=== PATIENT | male | born 1940 | race Caucasian/White ===

== ENCOUNTER 2018-07-11 08:37 | Day surgery (SDC) | payer MEDICARE ==
[2018-07-08 13:43] LABS: Basophils # (auto) 0 uL; Basophils % (auto) 1.1 % (0.0-2.0); Eosinophils # (auto) 0.1 uL; Eosinophils % (auto) 1.3 % (0.0-7.0); Hematocrit 41.9 % (41.0-53.0); Hemoglobin 14.2 g/dL (13.5-17.5); Lymphocytes # (auto) 0.5 uL; Lymphocytes % (auto) 12.7 % (10.0-50.0); Mean Corpuscular Hemoglobin 31.8 pg (28.0-32.0); Mean Corpuscular Hgb Conc. 33.8 g/dL (32.0-36.0); Mean Corpuscular Volume 94.1 fL (80.0-100.0); Monocytes # (auto) 0.5 uL; Monocytes % (auto) 10.9 % (0.0-12.0); Neutrophils # (auto) 3.1 uL; Nucleated Red Blood Cells % 0.2 %; Platelet Count (auto) 224 10^3/uL (140-450); Red Blood Cells 4.45 10^6/uL (4.5-5.90); Red Cell Distribution Width 13.9 % (11.8-14.3); White Blood Cell 4.2 10^3/uL (4.4-10.8)
[2018-07-08 13:58] LABS: INR 1.06 (0.9-1.15); Partial Thromboplastin Time 36.7 sec (23.78-33.04); Prothrombin Time 11.3 sec (9.27-12.13)
[~2018-07-11] VITALS: Ht 167.6 cm; Wt 74.8 kg
[~2018-07-11 08:37] MED LIST: ATOR10TA52 PO; HYDR12.56 PO; LOSA25TA40 PO; TAMS0.4C36 PO; [UNRECOGNIZED DRUG - CODE] PO
[2018-07-11] MEDS: MIDAZOLAM HCL 5 MG/ML-1ML VIAL ONE ×2 (10:21→10:24)
[2018-07-11] MEDS: fentaNYL CITRATE 100 MCG/2 ML VL ONE ×2 (10:21→10:24)
[2018-07-11] MEDS ORDERED: SODIUM CHLORIDE LOCK 10 ML ONE (10:21)
[2018-07-11 11:21] VITALS: BP 108/65
== END 2018-07-11 11:33 | disposition home or self-care (01) ==
LOC: GI 08:37
PROVIDERS: ATTEND Internal Medicine Gastroenterology
DX: D12.4 Benign neoplasm of descending colon (principal); K64.8 Other hemorrhoids; K57.30 Diverticulosis of large intestine without perforation or abscess without bleeding; I48.91 Unspecified atrial fibrillation; Z88.6 Allergy status to analgesic agent; Z87.891 Personal history of nicotine dependence; Z98.890 Other specified postprocedural states; Z79.899 Other long term (current) drug therapy; Z96.652 Presence of left artificial knee joint; Z96.641 Presence of right artificial hip joint
CPT/HCPCS: 36415; 45380; 85025; 85610; 85730; J2250; J3010; J7030; 99153; G0500

== ENCOUNTER → 2018-07-18 | Outpatient (CLI) | payer MEDICARE | END | disposition home or self-care (01) | LOC: Rad HDHVI 12:43 | PROVIDERS: ATTEND Internal Medicine Cardiovascular Disease | DX: I34.0 Nonrheumatic mitral (valve) insufficiency (principal); I48.0 Paroxysmal atrial fibrillation; I49.5 Sick sinus syndrome | CPT/HCPCS: 93306 ==

== ENCOUNTER → 2018-07-23 | Outpatient (CLI) | payer MEDICARE ==
[~2018-07-23] VITALS: Ht 167.6 cm; Wt 74.8 kg
== END | disposition home or self-care (01) ==
LOC: Rad HDHVI 08:21
PROVIDERS: ATTEND Internal Medicine Cardiovascular Disease
DX: Z01.810 Encounter for preprocedural cardiovascular examination (principal); I48.0 Paroxysmal atrial fibrillation; I49.5 Sick sinus syndrome
CPT/HCPCS: 78452; 93017; 96374; A9500

== ENCOUNTER 2018-07-24 10:16 | Emergency (ER) | payer MEDICARE ==
[~2018-07-24] VITALS: Ht 167.6 cm; Wt 74.8 kg
[2018-07-24 10:19] VITALS: BP 164/91
[2018-07-24] MEDS ORDERED: LIDOCAINE W/ EPINEPHRINE 2% INJ 20ML VIAL IJ ONE (12:00)
[2018-07-24] MEDS ORDERED: TETANUS-DIPTH-ACEL PERTUSSIS 0.5ML SYRG IM ONE (12:00)
[2018-07-24] MEDS ORDERED: BACITRACIN-POLYMYXIN B TOPICAL OINT UD TOP ONE ×2 (12:39→12:45)
== END 2018-07-24 12:49 | disposition home or self-care (01) ==
LOC: ER 10:17
DX: S61.412A Laceration without foreign body of left hand, initial encounter (principal); Z88.8 Allergy status to other drugs, medicaments and biological substances; Z79.899 Other long term (current) drug therapy; W26.0XXA Contact with knife, initial encounter; Y93.89 Activity, other specified; Y99.8 Other external cause status; Y92.89 Other specified places as the place of occurrence of the external cause
CPT/HCPCS: 12042; 73130; 90471; 90715

== ENCOUNTER 2018-07-31 10:47 | Emergency (ER) | payer MEDICARE ==
[~2018-07-31] VITALS: Ht 167.6 cm; Wt 74.8 kg
[2018-07-31 11:18] VITALS: BP 161/101
== END 2018-07-31 11:52 | disposition home or self-care (01) ==
LOC: ER 10:47
DX: S61.412D Laceration without foreign body of left hand, subsequent encounter (principal); X58.XXXD Exposure to other specified factors, subsequent encounter

== ENCOUNTER → 2018-08-18 | Outpatient (CLI) | payer MEDICARE ==
[~2018-08-18] MED LIST changes: +TROS20TA3 PO
[2018-08-18 08:15] VITALS: BP 161/91
[2018-08-18 09:00] VITALS: BP 152/90
[2018-08-18 13:04] LABS: Basophils # (auto) 0 uL; Basophils % (auto) 1.1 % (0.0-2.0); Eosinophils # (auto) 0.1 uL; Eosinophils % (auto) 3.4 % (0.0-7.0); Hematocrit 40.9 % (41.0-53.0); Hemoglobin 13.9 g/dL (13.5-17.5); Lymphocytes # (auto) 0.8 uL; Lymphocytes % (auto) 23.8 % (10.0-50.0); Mean Corpuscular Hemoglobin 31.6 pg (28.0-32.0); Monocytes # (auto) 0.4 uL; Monocytes % (auto) 11.6 % (0.0-12.0); Neutrophils # (auto) 1.9 uL; Neutrophils % (auto) 60.1 % (37.0-80.0); Platelet Count (auto) 207 10^3/uL (140-450); Red Cell Distribution Width 13.3 % (11.8-14.3); White Blood Cell 3.2 10^3/uL (4.4-10.8)
[2018-08-18 13:10] LABS: INR 1.05 (0.9-1.15); Partial Thromboplastin Time 36.9 sec (23.78-33.04); Prothrombin Time 11.2 sec (9.27-12.13)
[2018-08-18 13:32] LABS: Potassium 4.2 mmol/L (3.5-5.1)
[2018-08-18 13:49] LABS: BUN/Creatinine Ratio 13.2; Calcium 8.9 mg/dL (8.5-10.1)
== END | disposition home or self-care (01) ==
LOC: Rad HDHVI 08:01
PROVIDERS: ATTEND Internal Medicine Cardiovascular Disease
DX: Z01.818 Encounter for other preprocedural examination (principal); I70.0 Atherosclerosis of aorta; D64.9 Anemia, unspecified; R79.1 Abnormal coagulation profile; I10 Essential (primary) hypertension; I25.10 Atherosclerotic heart disease of native coronary artery without angina pectoris; I48.91 Unspecified atrial fibrillation
CPT/HCPCS: 36415; 71046; 80048; 85025; 85610; 85730; 93005; G0463

== ENCOUNTER 2018-08-21 08:21 | Day surgery (SDC) | payer MEDICARE ==
[~2018-08-21] VITALS: Ht 167.6 cm; Wt 74.8 kg
[2018-08-21] MEDS ORDERED: MIDAZOLAM HCL 1MG/1ML-2 ML VIAL IV ONE (10:15)
[2018-08-21] MEDS ORDERED: IOHEXOL 350 MG/ML 100ML IJ ONE (10:17)
[2018-08-21] MEDS ORDERED: LIDOCAINE 2%HCL (LOCAL ANESTH.) INJ 20ML MDV ONE (10:17)
[2018-08-21] MEDS ORDERED: fentaNYL CITRATE 100 MCG/2 ML VL ONE (10:43)
[2018-08-21] MEDS ORDERED: ANGIOMAX 250 MG VIAL IV ONE (10:43)
[2018-08-21] MEDS ORDERED: SODIUM CHL 0.9% 0 ML ONE (10:43)
== END 2018-08-21 14:15 | disposition home or self-care (01) ==
LOC: CATH 08:21
PROVIDERS: ATTEND Internal Medicine Cardiovascular Disease
DX: I48.91 Unspecified atrial fibrillation (principal); I08.0 Rheumatic disorders of both mitral and aortic valves; I77.819 Aortic ectasia, unspecified site; I49.5 Sick sinus syndrome; I10 Essential (primary) hypertension; E78.5 Hyperlipidemia, unspecified; N40.0 Benign prostatic hyperplasia without lower urinary tract symptoms; Z88.6 Allergy status to analgesic agent; Z87.891 Personal history of nicotine dependence; Z79.899 Other long term (current) drug therapy
CPT/HCPCS: 93312; 93458; 99152; 99153; A6257; C1760; C1769; C1894; J1644; J2250; J3010; J7030; Q9967

== ENCOUNTER 2023-04-06 12:01 | Emergency (ER) | payer MEDICARE, OTHER ==
[~2023-04-06] VITALS: Ht 167.6 cm; Wt 72.0 kg
[~2023-04-06 12:01] MED LIST changes: -HYDR12.56 PO; +HYDR12.59 PO; +LOSA25TA15 PO; -LOSA25TA40 PO
[2023-04-06] MEDS ORDERED: SODIUM CHLORIDE 0.9% 500 ML IV ONE (13:15)
[2023-04-06] MEDS ORDERED: MECLIZINE HCL 25 MG TAB PO ONE (14:00)
[2023-04-06 14:21] LABS: Basophils # (auto) 0 10 ^3/uL (0-0.2); Eosinophils # (auto) 0.1 10 ^3/uL (0-0.8); Eosinophils % (auto) 2.9 % (0.0-7.0); Hematocrit 29.9 % (41.0-53.0); Hemoglobin 9.9 g/dL (13.5-17.5); Lymphocytes # (auto) 0.9 10 ^3/uL (0.4-5.4); Lymphocytes % (auto) 22.6 % (10.0-50.0); Mean Corpuscular Hemoglobin 30.2 pg (28.0-32.0); Mean Corpuscular Hgb Conc. 33.1 g/dL (32.0-36.0); Mean Corpuscular Volume 91.1 fL (80.0-100.0); Monocytes # (auto) 0.4 10 ^3/uL (0-1.3); Monocytes % (auto) 11.1 % (0.0-12.0); Neutrophils # (auto) 2.4 10 ^3/uL (1.6-8.6); Neutrophils % (auto) 62.4 % (37.0-80.0); Nucleated Red Blood Cells % 0.1 %; Red Blood Cells 3.28 10^6/uL (4.5-5.90); Red Cell Distribution Width 14.3 % (11.8-14.3); White Blood Cell 3.8 10^3/uL (4.4-10.8)
[2023-04-06 14:23] LABS: Urine Bacteria FEW /hpf (None Seen); Urine Blood 3+ /uL (Negative); Urine Specific Gravity 1.014 (1.001-1.035); Urine WBC 119 /hpf (0 - 3)
[2023-04-06 14:38] LABS: INR 1.1 (0.9-1.15); Partial Thromboplastin Time 32.6 SEC (24.5-34.5)
[2023-04-06 15:01] LABS: Calcium 8.1 mg/dL (8.5-10.1); Potassium 4.1 mmol/L (3.5-5.1)
[2023-04-06 15:06] LABS: Albumin 3.3 g/dL (3.4-5.0); BUN/Creatinine Ratio 9.2 (10.0-20.0); Bilirubin, Total 0.4 mg/dL (0.2-1.0); Magnesium 2.4 mg/dL (1.6-2.6); Total Protein 6.7 g/dL (6.4-8.2)
[2023-04-06] MEDS ORDERED: cefTRIAXone 1GM/50ML D5W 50 ML IV ONE (15:15)
[2023-04-06] MEDS ORDERED: CEPH500T PO (16:41)
[2023-04-06 17:36] VITALS: BP 122/75
== END 2023-04-06 19:06 | disposition home or self-care (01) ==
LOC: ER 12:01
DX: I95.9 Hypotension, unspecified (principal); R42 Dizziness and giddiness; N39.0 Urinary tract infection, site not specified; Z88.6 Allergy status to analgesic agent; Z79.01 Long term (current) use of anticoagulants; Z79.899 Other long term (current) drug therapy
CPT/HCPCS: 36415; 70450; 71045; 80053; 81001; 83735; 84484; 85025; 85610; 85730; 87086; 93005; 96365; 99285; J0696; J7040; J8597

== ENCOUNTER 2025-03-17 11:46 | Emergency (ER) | payer OTHER, MEDICARE ==
[~2025-03-17] VITALS: Ht 165.1 cm; Wt 66.1 kg
[~2025-03-17 11:46] MED LIST changes: +CEPH500T PO; +LOSA-533 PO; -LOSA25TA15 PO; -TAMS0.4C36 PO; +TAMS0.4C39 PO
[2025-03-17 13:08] VITALS: BP 107/62; PULSE 60; RESP 16; TEMP 97.6; O2SAT 95
--- NOTE | 2025-03-17 13:25 | ED.PDOC ---
History of Present Illness(SKN HPI Comments A 84-year-old male with a past medical history of hypertension, bladder cancer, currently on chemotherapy with a chief complaint of abscess on 1 year. Patient states he noticed a "lump" on his back about 1 year ago, was seen at the [facility], told him it was benign. About 1 week ago, patient noticed lump had grown, painful to touch, noted blood spots on bedsheet after laying on his back. No other symptoms or modifying factors present at this time. Denies fever chills sweats Denies nausea vomiting diarrhea Denies numbness/tingling Denies headache dizziness blurry vision Chief Complaint: Abscess Time Seen by MD: 13:15 Primary Care Provider: [facility] History of Present Illness: Nurses Notes, Medications, Allergies Allergies: Coded Allergies: Aspirin (Verified Allergy, Unknown, 08/18/18) Home Meds Active Scripts Doxycycline Hyclate (DOXYCYCLINE HYCLATE) 100 Mg Tab, 1 TAB PO BID for 7 Days, #14 TAB 0 Refills Prov:MARIBEL DAY NP 03/17/25 Cephalexin Monohydrate (Cephalexin) 500 Mg Tab, 1 TAB PO QID for 6 Days, #24 TAB Prov:ERLINDA GUZMAN MD 04/06/23 Reported Medications Trospium Chloride (Trospium Chloride) 20 Mg Tab, 20 MG PO BID, TAB 08/18/18 Hydrochlorothiazide (Hydrochlorothiazide) 12.5 Mg Cap, 12.5 MG PO DAILY for 30 Days, MG 07/08/18 Losartan Potassium (Losartan Potassium) 25 Mg Tab, 50 MG PO DAILY for 30 Days, MG 07/08/18 Tamsulosin Hcl (Tamsulosin Hcl) 0.4 Mg Cap, 0.4 MG PO QPM for 30 Days, MG 07/08/18 Edoxaban Tosylate Monohydrate (Savaysa) 15 Mg Tab, 30 MG PO DAILY, TAB 07/08/18 Atorvastatin Calcium (ATORVASTATIN CALCIUM) 10 Mg Tab, 1 TAB PO DAILY, #30 TAB 5 Refills 07/08/18 Information Source: Patient Mode of Arrival: Ambulatory Severity: Moderate Timing: Weeks Duration: Since onset Prehospital treatment: None Location: Back Mechanism: Spontaneous Onset Object: None Condition of Object: None Wound Type: Abscess History of: None Past Medical History PAST MEDICAL HISTORY: Cancer (bladder), HTN Surgical History: Denies all surgeries Family History Family History: Unknown Social History Smoker: Non-Smoker Alcohol: Denies ETOH Use Drugs: Denies Drug Use Lives In: Home All Other Systems: Reviewed and Negative (as per HPI) Physical Exam General Appearance: No Apparent Distress, Normal HEENT: Normal ENT Inspection, Pharynx Normal, TMs Normal Neck: Full Range of Motion, Non-Tender, Normal, Normal Inspection Respiratory: Chest Non-Tender, Lungs Clear, No Accessory Muscle Use, No Respiratory Distress, Normal Breath Sounds Cardiovascular: No Edema, No JVD, No Murmur, No Gallop, Normal Peripheral Pulses, Regular Rate/Rhythm Breast Exam: Deferred Gastrointestinal: No Organomegaly, Non Tender, No Pulsatile Mass, Normal Bowel Sounds, Soft Genitalia: Deferred Pelvic: Deferred Rectal: Deferred Extremities: No calf tenderness, Normal capillary refill, No pedal edema Musculoskeletal : Location: Left Extremity Location: Back (3 x 2 cm mass to LT thoracic paraspinal region, with erythema, tender to touch, visable discharge with palpation, yellow/green color, no surrounding erythema, crepitus) Apperance: Normal Neurologic: Alert, loader technician II-XII nml as Tested, No Motor Deficits, Normal Affect, Normal Mood, No Sensory Deficits Cerebellar Function: Normal Reflexes: Normal Skin: Dry, Normal Color, Warm Lymphatic: No Adenopathy Was a procedure done? Was a procedure done?: Yes Incision and Drainage Incision and Drainage: Abscess Anesthetic: Lidocaine with Epi Preparation: Betadine, Saline, Wound mandrel cleaner Incision and Wound: Pus, Irrigated, Packed Informed consent obtained: Yes Risks/benefits/alt described: Yes X-Ray, Labs, Meds, VS Vital Signs Date Time Temp Pulse Resp B/P (MAP) Pulse Ox O2 Delivery O2 Flow Rate FiO2 03/17/25 13:08 60 16 95 Room Air 03/17/25 13:08 97.6 60 16 107/62 (77) 95 97.6 03/17/25 12:10 97.6 60 16 107/62 (77) 95 97.6 Lab Test 03/17/25 13:21 Range/Units White Blood Count 7.7 4.4-10.8 10^3/uL Red Blood Count 4.32 L 4.5-5.90 10^6/uL Hemoglobin 14.1 13.5-17.5 g/dL Hematocrit 41.8 41.0-53.0 % Mean Corpuscular Volume 96.8 80.0-100.0 fL Mean Corpuscular Hemoglobin 32.7 H 28.0-32.0 pg Mean Corpuscular Hemoglobin Concent 33.8 32.0-36.0 g/dL Red Cell Distribution Width 14.9 H 11.8-14.3 % Platelet Count 190 140-450 10^3/uL Mean Platelet Volume 7.4 6.9-10.8 fL Neutrophils (%) (Auto) 78.9 37.0-80.0 % Lymphocytes (%) (Auto) 9.8 L 10.0-50.0 % Monocytes (%) (Auto) 8.6 0.0-12.0 % Eosinophils (%) (Auto) 2.0 0.0-7.0 % Basophils (%) (Auto) 0.7 0.0-2.0 % Neutrophils # (Auto) 6.1 1.6-8.6 10 ^3/uL Lymphocytes # (Auto) 0.8 0.4-5.4 10 ^3/uL Monocytes # (Auto) 0.7 0-1.3 10 ^3/uL Eosinophils # (Auto) 0.2 0-0.8 10 ^3/uL Basophils # (Auto) 0.1 0-0.2 10 ^3/uL Nucleated Red Blood Cells 0.1 % Sodium Level 143 136-145 mmol/L Potassium Level 5.2 H 3.5-5.1 mmol/L Chloride Level 105 98-107 mmol/L Carbon Dioxide Level 32 H 20-31 mmol/L Anion Gap 6 5-15 Blood Urea Nitrogen 16 9-23 mg/dL Creatinine 1.01 0.700-1.30 mg/dL Glomerular Filtration Rate Calc 72 >90 mL/min BUN/Creatinine Ratio 15.8 10.0-20.0 Serum Glucose 89 74-106 mg/dL Calcium Level 9.7 8.7-10.4 mg/dL X-Ray, Labs, Meds, VS Comment A 84-year-old male with a past medical history of hypertension, bladder cancer, currently on chemotherapy with a chief complaint of abscess on 1 year. Patient arrives alert and oriented, ABC's intact, afebrile, vital signs stable, saturating well in room air Peripheral IV insertion+ labs were ordered. CBC was ordered to exclude anemia, blood loss, or infection. BMP was ordered to exclude electrolyte abnormalities, renal failure, dehydration, hyperglycemia Labs in the ED showed (pertinent+ and then pertinent-) Patient was given: Lidocaine/Epinephrin 5 ml . Tolerated medications with no adverse reaction. Additional MDM Review of External, Non-ED records: External records reviewed. Discussion with independent historian (EMS, family) history obtained from the patient/parents (if applicable) at bedside Chronic conditions affecting care: HTN, bladder cancer Social determinants of health affecting care: None Consideration of admission (observation or admission): I considered escalation of care to admission for this patient, however given the reassuring workup, the patient is safe for outpatient management. Time of 1ST Reevaluation: 13:45 Reevaluation 1ST: Improved Patient Education/Counseling: Diagnosis, Treatment Family Education/Counseling: No Family Present Departure 1 Departure Time of Disposition: 14:28 Impression: Primary Impression: Abscess Disposition: 01 HOME / SELF CARE / HOMELESS Condition: Fair e-Prescriptions Doxycycline Hyclate (DOXYCYCLINE HYCLATE) 100 Mg Tab 1 TAB PO BID for 7 Days, #14 TAB 0 Refills Prov: MARIBEL DAY NP 03/17/25 Critical Care Note Critical Care Time?: No Stability Stability form required: No Heart Score Heart Score: Heart Score Response (Comments) Value History N/A 0 EKG N/A 0 Age N/A 0 Risk Factors N/A 0 Troponin N/A 0 Total 0 I personally scribed for MARIBEL DAY MAGAZ[employer] GRINDER LOADER ([email or web address]) on 03/17/25 at 13:25. Electronically submitted by Itzel Martinez ([email or web address]). I personally scribed for MARIBEL DAY [employer]AZINE GRINDER LOADER ([email or web address]) on 03/17/25 at 13:26. Electronically submitted by Itzel Martinez ([email or web address]). I personally scribed for MARIBEL DAY MAGAZINE GRINDER LOADER ([email or web address]) on 03/17/25 at 13:28. Electronically submitted by Itzel Martinez ([email or web address]). I personally scribed for MARIBEL DAY [employer]AZ[employer] GRINDER LOADER ([email or web address]) on 03/17/25 at 15:59. Electronically submitted by Itzel Martinez ([email or web address]). MAIRBEL DAY MAGAZINE GRINDER LOADER Mar 17, 2025 13:25
[2025-03-17] MEDS: LIDOCAINE W/ EPINEPHRINE 1% 20ML VIAL ID ONE (13:35)
[2025-03-17 13:44] LABS: Basophils # (auto) 0.1 10 ^3/uL (0-0.2); Basophils % (auto) 0.7 % (0.0-2.0); Eosinophils # (auto) 0.2 10 ^3/uL (0-0.8); Hematocrit 41.8 % (41.0-53.0); Hemoglobin 14.1 g/dL (13.5-17.5); Lymphocytes # (auto) 0.8 10 ^3/uL (0.4-5.4); Lymphocytes % (auto) 9.8 % (10.0-50.0); Mean Corpuscular Hemoglobin 32.7 pg (28.0-32.0); Mean Corpuscular Hgb Conc. 33.8 g/dL (32.0-36.0); Mean Corpuscular Volume 96.8 fL (80.0-100.0); Monocytes # (auto) 0.7 10 ^3/uL (0-1.3); Monocytes % (auto) 8.6 % (0.0-12.0); Neutrophils # (auto) 6.1 10 ^3/uL (1.6-8.6); Neutrophils % (auto) 78.9 % (37.0-80.0); Nucleated Red Blood Cells % 0.1 %; Platelet Count (auto) 190 10^3/uL (140-450); Red Blood Cells 4.32 10^6/uL (4.5-5.90); Red Cell Distribution Width 14.9 % (11.8-14.3); White Blood Cell 7.7 10^3/uL (4.4-10.8)
[2025-03-17 13:51] LABS: Chloride 105 mmol/L (98-107); Sodium 143 mmol/L (136-145)
[2025-03-17 13:52] LABS: Anion Gap 6 (5-15)
[2025-03-17 13:53] LABS: Calcium 9.7 mg/dL (8.7-10.4); Carbon Dioxide 32 mmol/L (20-31); Potassium 5.2 mmol/L (3.5-5.1)
[2025-03-17 13:57] LABS: BUN/Creatinine Ratio 15.8 (10.0-20.0); Blood Urea Nitrogen 16 mg/dL (9-23); Glucose 89 mg/dL (74-106)
[2025-03-17] MEDS ORDERED: DOXY-286 PO (14:29)
== END 2025-03-17 14:42 | disposition home or self-care (01) ==
LOC: ER 11:46
DX: L02.212 Cutaneous abscess of back [any part, except buttock and flank] (principal); I10 Essential (primary) hypertension; Z88.6 Allergy status to analgesic agent; Z79.899 Other long term (current) drug therapy
CPT/HCPCS: 10060; 36415; 80048; 85025

== ENCOUNTER 2025-03-19 10:33 | Emergency (ER) | payer OTHER, MEDICARE ==
[~2025-03-19] VITALS: Ht 165.1 cm; Wt 65.7 kg
[~2025-03-19 10:33] MED LIST changes: +DOXY-286 PO
--- NOTE | 2025-03-19 10:47 | ED.PDOC ---
History of Present Illness(SKN HPI Comments 84 y/o M, with PMHx of bladder cancer, AFib, and HTN presents to the ED for CC of wound check. Patient reports, that he had an abscess on his back lanced on Saturday (03/17/25). Patient was relayed to report to the ED for a re-check today (03/19/25). Patient denies discharge, fever, chills, or N/V/D. No other symptoms or modifying factors present at this time. Time Seen by MD: 10:40 Primary Care Provider: [facility] History of Present Illness: Nurses Notes, Medications, Allergies Allergies: Coded Allergies: Aspirin (Verified Allergy, Unknown, 08/18/18) Home Meds Active Scripts Doxycycline Hyclate (DOXYCYCLINE HYCLATE) 100 Mg Tab, 1 TAB PO BID for 7 Days, #14 TAB 0 Refills Prov:MARIBEL DAY NP 03/17/25 Cephalexin Monohydrate (Cephalexin) 500 Mg Tab, 1 TAB PO QID for 6 Days, #24 TAB Prov:ERLINDA GUZMAN MD 04/06/23 Reported Medications Trospium Chloride (Trospium Chloride) 20 Mg Tab, 20 MG PO BID, TAB 08/18/18 Hydrochlorothiazide (Hydrochlorothiazide) 12.5 Mg Cap, 12.5 MG PO DAILY for 30 Days, MG 07/08/18 Losartan Potassium (Losartan Potassium) 25 Mg Tab, 50 MG PO DAILY for 30 Days, MG 07/08/18 Tamsulosin Hcl (Tamsulosin Hcl) 0.4 Mg Cap, 0.4 MG PO QPM for 30 Days, MG 07/08/18 Edoxaban Tosylate Monohydrate (Savaysa) 15 Mg Tab, 30 MG PO DAILY, TAB 07/08/18 Atorvastatin Calcium (ATORVASTATIN CALCIUM) 10 Mg Tab, 1 TAB PO DAILY, #30 TAB 5 Refills 07/08/18 Information Source: Patient Mode of Arrival: Ambulatory Severity: Moderate Timing: Days Duration: Since onset Prehospital treatment: None Location: Back Mechanism: Spontaneous Onset Wound Type: Abscess Immunization Status of Animal: Unknown Tetanus: Unknown History of: None Associated Signs and Symptoms: None Past Medical History PAST MEDICAL HISTORY: AFIB, Cancer, HTN Surgical History: Hernia Repair Surgical History (Other): cataracts, shoulder, PM, bilateral hip replacement, L-knee Family History Family History: Unknown Social History Smoker: Non-Smoker Alcohol: Denies ETOH Use Drugs: Denies Drug Use Lives In: Home Constitutional: denies: chills, diaphoresis, fatigue, fever, malaise, sweats, weakness, others EENTM: denies: blurred vision, double vision, ear bleeding, ear discharge, ear drainage, ear pain, ear ringing, eye pain, eye redness, hearing loss, mouth pain, mouth swelling, nasal discharge, nose bleeding, nose congestion, nose pain, photophobia, tearing, throat pain, throat swelling, voice changes, others Respiratory: denies: cough, hemoptysis, orthopnea, SOB at rest, shortness of breath, SOB with excertion, stridor, wheezing, others Cardiovascular: denies: chest pain, dizzy spells, diaphoresis, Dyspnea on exertion, edema, irregular heart beat, left arm pain, lightheadedness, palpitations, PND, syncope, others Gastrointestinal: denies: abdomen distended, abdominal pain, blood streaked bowels, constipated, diarrhea, dysphagia, difficulty swallowing, hematemesis, melena, nausea, poor appetite, poor fluid intake, rectal bleeding, rectal pain, vomiting, others Genitourinary: denies: burning, dysuria, flank pain, frequency, hematuria, incontinence, penile discharge, penile sore, pain, testicle pain, testicle sw elling, urgency, others Neurological: denies: dizziness, fainting, headache, left sided numbness, left sided weakness, numbness, paresthesia, pre-existing deficit, right sided numbness, right sided weakness, seizure, speech problems, tingling, tremors, weakness, others Musculoskeletal: denies: back pain, gout, joint pain, joint swelling, muscle pain, muscle stiffness, neck pain, others Integumetry: denies: bruises, change in color, change in hair/nails, dryness, laceration, lesions, lumps, rash, wounds, others Allergic/Immunocompromised: denies: Difficulty Healing, Frequent Infections, Hives, Itching, others Hematologic/Lymphatic: denies: anemia, blood clots, easy bleeding, easy bruising, swollen glands, others Endocrine: denies: excessive hunger, excessive sweating, excessive thirst, excessive urination, flushing, intolerance to cold, intolerance to heat, unexplained weight gain, unexplained weight loss, others Psychiatric: denies: anxiety, bipolar disorder, depression, hopeless, panic disorder, schizophrenia, sleepless, suicidal, others All Other Systems: Reviewed and Negative Physical Exam General Appearance: No Apparent Distress HEENT: Normal ENT Inspection, Pharynx Normal, TMs Normal Neck: Full Range of Motion, Non-Tender, Normal, Normal Inspection Respiratory: Chest Non-Tender, Lungs Clear, No Accessory Muscle Use, No Respiratory Distress, Normal Breath Sounds Cardiovascular: No Edema, No JVD, No Murmur, No Gallop, Normal Peripheral Pulses, Regular Rate/Rhythm Breast Exam: Deferred Gastrointestinal: No Organomegaly, Non Tender, No Pulsatile Mass, Normal Bowel Sounds, Soft Genitalia: Deferred Pelvic: Deferred Rectal: Deferred Extremities: No calf tenderness, Normal capillary refill, Normal inspection, Normal range of motion, Non-tender, No pedal edema Musculoskeletal : Apperance: Normal Neurologic: Alert, grinder mill operator II-XII nml as Tested, No Motor Deficits, Normal Affect, Normal Mood, No Sensory Deficits Cerebellar Function: Normal Reflexes: Normal Skin: Dry, Normal Color, Warm, Wounds (The patient has a dressing with the packing in place. ) Lymphatic: No Adenopathy Was a procedure done? Was a procedure done?: No Differential Diagnosis (INTG) Differential Diagnosis: N/A Differential Diagnosis: Abscess X-Ray, Labs, Meds, VS Vital Signs Date Time Temp Pulse Resp B/P (MAP) Pulse Ox O2 Delivery O2 Flow Rate FiO2 03/19/25 10:43 98.0 77 16 139/90 (106) 96 98.0 The dressing was changed. The patient is to continue taking the doxycycline. At this time, the patient is discharged and will follow up with the primary care doctor The patient will return to the emergency department's the condition worsens. The patient understands and agrees with the management. Time of 1ST Reevaluation: 11:10 Reevaluation 1ST: Unchanged Patient Education/Counseling: Diagnosis, Treatment, Prognosis, Need For Follow Up Family Education/Counseling: No Family Present Departure 1 Departure Time of Disposition: 11:11 Impression: Primary Impression: Abscess Additional Impression: Wound check, abscess Disposition: 01 HOME / SELF CARE / HOMELESS Condition: Fair Discharged With: Self Critical Care Note Critical Care Time?: No Stability Stability form required: No Heart Score Heart Score: Heart Score Response (Comments) Value History N/A 0 EKG N/A 0 Age N/A 0 Risk Factors N/A 0 Troponin N/A 0 Total 0 I personally scribed for ELISEO MALONE MD ([email or web address]) on 03/19/25 at 10:47. Electronically submitted by Parisa Sorensen ([email or web address]). ELISEO MALONE MD Mar 19, 2025 10:47
[2025-03-19 12:05] VITALS: BP 132/81; PULSE 58; RESP 16; TEMP 97.9; O2SAT 96
== END 2025-03-19 12:11 | disposition home or self-care (01) ==
LOC: ER 10:33
DX: L02.212 Cutaneous abscess of back [any part, except buttock and flank] (principal); I48.91 Unspecified atrial fibrillation; I10 Essential (primary) hypertension; Z85.51 Personal history of malignant neoplasm of bladder; Z98.890 Other specified postprocedural states; Z96.643 Presence of artificial hip joint, bilateral; Z88.6 Allergy status to analgesic agent; Z79.899 Other long term (current) drug therapy; Z79.01 Long term (current) use of anticoagulants